=== PATIENT | male | born 1960 | race Caucasian/White ===

== ENCOUNTER → 2016-09-20 | Outpatient (CLI) | payer OTHER ==
[~2016-09-20] VITALS: Ht 198.1 cm; Wt 114.8 kg
[~2016-09-20] MED LIST: AMLO10TA2 PO; GADOBUTROL 7.5 MMOL/7.5 ML VIAL INT ART ONE; IBUP-1060 PO; IOHEXOL 300 MG/ML 50 ML VIAL. IJ ONE; LOSA1TAB17 PO; OXYC-244 PO
[2016-09-20 09:16] VITALS: BP 145/91
--- NOTE | 2016-09-20 11:25 | RAD ---
PROCEDURE MR arthrogram left shoulder with intra-articular contrast. HISTORY Left shoulder pain. Prior rotator cuff repair in June. TECHNIQUE MRI of the left shoulder was performed after the intra-articular administration of gadolinium contrast. Refer to the procedure report for description of that injection. COMPARISON 05/27/2015. FINDINGS The distal clavicle as been partially resected. There are changes of inferior acromioplasty. Contrast reaches the subacromial/subdeltoid bursa consistent with full-thickness rotator cuff tear as follows. Moderate bursitis is suspected. There are 4 suture anchors in the greater tuberosity at the supraspinatus insertion consistent with rotator cuff tear. There is a recurrent tear of the supraspinatus tendon with partial and full thickness components. As demonstrated on the ABER series, there is a full-thickness longitudinal component anteriorly that extends proximal by 3.3 centimeters. There is a partial thickness undersurface retracted tear more posteriorly at the junction with the anterior infraspinatus fibers. The torn undersurface component is retracted by 3.5 centimeters and is less than 50 percent of the tendon substance. At least 50 percent of the tendon substance remains intact to the insertion more anteriorly but is somewhat irregular with at least moderate tendinopathy. A nondisplaced intrasubstance full thickness or near full thickness tear is suspected along the anterior infraspinatus fibers as seen on series 9 image 7. This is 1.5 centimeters proximal to the insertion. The subscapularis tendon is intact. The supraspinatus muscle is mildly atrophic without fatty infiltration. The other muscles are normal in size and signal. The long head biceps tendon is intact and located in the groove. There is a degenerative tear of the superior glenoid labrum versus prior trimming. This extends through the posterior labrum. There is tiny paralabral cyst at the 3 o'clock position measuring 3 millimeters. The glenohumeral articular cartilage demonstrates no focal defects. Alignment is maintained. IMPRESSION - Status post supraspinatus repair. There is a recurrent complex tear. The majority of the tear is partial thickness, but there are full thickness longitudinal components. One undersurface fragment is retracted 3.5 centimeters. Approximately 50 percent of the tendon substance remains intact to the insertion. - Full thickness nondisplaced longitudinal tear of the anterior infraspinatus tendon. - Degenerative superior and posterior labral tear. Tiny posterior perilabral cyst. - Suspect moderate subacromial/subdeltoid bursitis. Electronically signed by: Cole Corado (Sep 20, 2016 11:24:47)
--- NOTE | 2016-09-20 11:29 | RAD ---
Indication: Left shoulder pain. Prior surgery. Procedure: The procedure, its risks and benefits, and potential complications were discussed with the patient. All questions were answered. Written consent to proceed was obtained. Timeout procedure was performed. Patient was prepped and draped in the usual manner. 1% lidocaine was administered locally. 22-gauge spinal needle was positioned into the glenohumeral joint. Positioning was confirmed with 5 mL of Omnipaque 300. Subsequent, approximately 15 mL of a mixture of 0.1 mL of Gadavist and 20 mL of normal saline was injected into the joint, total volume in the joint closer to 20 mm. Needle was withdrawn. Patient tolerated the procedure well. He was transferred to the MRI suite for additional imaging which will be reported separately. 2 images documenting needle and contrast position were stored. Image count is 2. Fluoroscopy time is 0.6 minutes. Impression: Left shoulder arthrogram without complication.
--- NOTE | 2016-09-20 11:38 | RAD ---
PROCEDURE MRI cervical spine without contrast. HISTORY Left shoulder and arm pain TECHNIQUE Multiplanar, multi multi sequential, non contrast MR imaging was performed of the cervical spine. COMPARISON None FINDINGS There is some motion degradation. Cervical cord caliber is within normal limits without significant focal signal abnormality allowing for mild motion artifact. Cervical vertebral body stature and AP alignment are adequate. There is no significant abnormality of the cervical medullary junction. There is moderate degenerative disc disease C6-C7, minimally at C5-C6. C2-3: Spinal canal and the neural foramina are adequate. There is mild to moderate facet degenerative change bilaterally. There is apparently very shallow protrusion in the right lateral recess with associated annular tear. C3-C4: There is moderate facet hypertrophic change. There is mild left uncovertebral degenerative change. Spinal canal and right neural foramen are adequate, moderate to severe narrowing of the left neural foramen. C4-C5: There is moderate facet hypertrophic change. Spinal canal and neural foramina are adequate. C5-C6: There is negligible disc osteophyte complex greater left lateral recess. Spinal canal is adequate. There is moderate facet hypertrophic change. There is very mild left uncovertebral degenerative change. There is at least moderate narrowing of the left neural foramen. Right neural foramen is adequate. C6-C7: There is very minimal posterior disc osteophyte complex. Central canal is minimally narrowed to 9-10 millimeters. There is minimal narrowing of the right neural foramen by uncovertebral degenerative change, left neural foramen adequate. C7-T1: There is negligible posterior central protrusion. Central canal is adequate 11 millimeters. There is likely mild right and at least mild left neural foramina compromise in part by mild uncovertebral degenerative change. IMPRESSION 1. There is no significant cervical spinal stenosis, minimal narrowing at C6-7. 2. There is moderate degenerative disc disease at C6-7 and to lesser degree at C5-C6, mild spondylosis at these levels. 3. There is suspected neural foramina compromise as stated greatest on the left at C5-C6 and C3-C4 and to a lesser degree bilaterally at C7-T1. Facet and uncovertebral degenerative change contributes to neural foramina compromise. Electronically signed by: Bogdan Albarran MD (Sep 20, 2016 11:37:23)
== END | disposition home or self-care (01) ==
LOC: RAD 12:36
PROVIDERS: ATTEND Nurse Practitioner Family
DX: S49.92XA Unspecified injury of left shoulder and upper arm, initial encounter (principal); M50.323 Other cervical disc degeneration at C6-C7 level; M47.892 Other spondylosis, cervical region; S43.402A Unspecified sprain of left shoulder joint, initial encounter; W19.XXXA Unspecified fall, initial encounter; Y93.89 Activity, other specified; Y92.89 Other specified places as the place of occurrence of the external cause; Y99.8 Other external cause status
CPT/HCPCS: 20605; 72141; 73222; 77002; Q9967; A9585

== ENCOUNTER → 2020-01-03 | Outpatient (CLI) | payer BC ==
[2016-09-20 09:16] VITALS: BP 145/91
[~2020-01-03] MED LIST changes: -AMLO10TA2 PO; +AMLO10TA8 PO; -GADOBUTROL 7.5 MMOL/7.5 ML VIAL INT ART ONE; -IOHEXOL 300 MG/ML 50 ML VIAL. IJ ONE; -LOSA1TAB17 PO; +LOSA1TAB22 PO; -OXYC-244 PO; +OXYC1TAB19 PO
--- NOTE | 2020-01-03 12:47 | RAD ---
ABDOMEN LTD History: Abnormal liver function tests, abnormality on outside facility exam in 2015 Comparison: None. Findings: Multiple sonographic images of the abdomen are submitted. Pancreas is not well-visualized due to bowel gas. Gallbladder is present without demonstrable layering sludge, wall thickening, or pericholecystic fluid. There is suggestion of increased echogenicity near the gallbladder neck although otherwise difficult to characterize. Common bile duct is within normal limits about 0.3 cm. There is some coarsening of the hepatic echotexture. Inferior vena cava and abdominal aorta are not well visualized on this exam. Right kidney measured 12.6 x 4.7 x 5.9 cm, no hydronephrosis. Impression: 1. There is some coarsening of the hepatic echotexture, more commonly due to steatosis. 2. Otherwise poorly evaluated on this exam, there is suggestion of some increased echogenicity near the gallbladder neck which could be a gallstone or polyp. Electronically signed by: Paresh Albarran MD (01/03/2020 12:43 PM) [id number]
== END ==
LOC: US 09:08
PROVIDERS: ATTEND Family Medicine
DX: K76.0 Fatty (change of) liver, not elsewhere classified (principal)
CPT/HCPCS: 76705

== ENCOUNTER 2021-11-11 13:21 | Emergency (ER) | payer BC ==
[~2021-11-11] VITALS: Ht 198.1 cm; Wt 123.7 kg
[~2021-11-11 13:21] MED LIST changes: +AMLO-187 PO; -AMLO10TA8 PO
[2021-11-11 13:23] VITALS: BP 158/82
[2021-11-11] MEDS ORDERED: KETOROLAC 60 MG/2 ML VIAL. IM ONE (14:30)
--- NOTE | 2021-11-11 14:55 | PHYS DOC ---
Past Medical History Past Surgical History: Other Additional Past Surgical Histo: rotator cuff General Adult EDM: Chief Complaint: NECK PAIN HPI: HPI: Patient is a 61-year-old male who presents today with right-sided neck pain. Patient states that the pain started yesterday, he said he took some Aleve and slept throughout the night and he said he woke up and his pain was improved and then throughout the day his neck pain has worsened. 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 Patient denies chest pain, shortness of breath, dizziness, fever or chills Review of Systems: Review of Systems: Constitutional: Denies fever or chills. [] Eyes: Denies change in visual acuity. [] HENT: Denies nasal congestion or sore throat. [] Respiratory: Denies cough or shortness of breath. [] Cardiovascular: Denies chest pain or edema. [] GI: Denies abdominal pain, nausea, vomiting, bloody stools or diarrhea. [] : Denies dysuria. [] Musculoskeletal: Neck pain Integument: Denies rash. [] Neurologic: Denies headache, focal weakness or sensory changes. [] Endocrine: Denies polyuria or polydipsia. [] Lymphatic: Denies swollen glands. [] Psychiatric: Denies depression or anxiety. [] Heart Score: C/O Chest Pain: No Risk Factors: Risk Factors: DM, Current or recent (<one month) smoker, HTN, HLP, family history of CAD, obesity. Risk Scores: Score 0 - 3: 2.5% MACE over next 6 weeks - Discharge Home Score 4 - 6: 20.3% MACE over next 6 weeks - Admit for Clinical Observation Score 7 - 10: 72.7% MACE over next 6 weeks - Early Invasive Strategies Current Medications: Current Medications Medications (Trade) Dose Ordered Sig/Meron Start Time Stop Time Status Last Admin Dose Admin Ketorolac Tromethamine (Toradol Im) 60 mg 1X ONCE 11/11/21 14:30 11/11/21 14:31 DC 11/11/21 14:34 60 MG Allergies: Allergies: Allergies Coded Allergies Type Severity Reaction Last Updated Verified No Known Drug Allergies 06/22/15 No Physical Exam: PE: Constitutional: Well developed, well nourished, no acute distress, non-toxic appearance. [] HENT: Normocephalic, atraumatic, bilateral external ears normal, oropharynx moist, no oral exudates, nose normal. [] Eyes: PERRLA, EOMI, conjunctiva normal, no discharge. [] Neck: Patient is unable to turn his head to the right, he is able to make full range of motion to the left, patient has increased pain with palpation along the right trapezius muscle no midline tenderness, no numbness tingling and strength issues in bilateral arms Cardiovascular:Heart rate regular rhythm, no murmur [] Lungs & Thorax: Bilateral breath sounds clear to auscultation [] Abdomen: Bowel sounds normal, soft, no tenderness, no masses, no pulsatile masses. [] Skin: Warm, dry, no erythema, no rash. [] Back: No tenderness, no CVA tenderness. [] Extremities: No tenderness, no cyanosis, no clubbing, ROM intact, no edema. [] Neurologic: Alert and oriented X 3, normal motor function, normal sensory function, no focal deficits noted. [] Psychologic: Affect normal, judgement normal, mood normal. [] Current Patient Data: Vital Signs: Vital Signs Date Time Temp Pulse Resp B/P (MAP) Pulse Ox O2 Delivery O2 Flow Rate FiO2 11/11/21 13:23 98.3 87 16 158/82 (107) 98 Room Air 98.3 EKG: EKG: [] Radiology/Procedures: Radiology/Procedures: REASON: right neck pain PROCEDURE: CT CERVICAL SPINE WO CONTRAST Exam: CT cervical spine without contrast INDICATION: Right, neck pain TECHNIQUE: Sequential axial images through the cervical spine obtained without IV contrast. Sagittal and coronal reformatted images were reconstructed from the axial data and reviewed. Exposure: One or more of the following in the visualized dose reduction techniques were utilized for this examination: 1. Automated exposure control 2. Adjustment of the MA and/or KV according to patient size 3. Use of iterative of reconstructive technique Comparisons: None FINDINGS: Visualized intracranial structures. Vertebral body heights and alignment are normal. Fracture to the cervical spine is not identified. Multilevel spondylotic change in cervical spine with degenerative disc disease greatest at C5-C6 and C6-C7. Mild bilateral facet arthropathy is also noted in cervical spine. Visualized paraspinal soft tissues are unremarkable. IMPRESSION: Negative CT C-spine for acute traumatic injury. Electronically signed by: Mercedez Fitzgerald MD (11/11/2021 3:07 PM) [facility] [] Course & Med Decision Making: Course & Med Decision Making Pertinent Labs and Imaging studies reviewed. (See chart for details) 1530 I did review radiological results with patient and after reviewing them I feel that this patient has musculoskeletal pain in his neck, he said that after the Toradol his neck does feel better, we talked about his treatment plan he is agreeable to taking Flexeril and Motrin for his pain, he did not want any hydrocodone at this time, he states he will follow-up with his primary care physician Dr. Leyva for further evaluation and management should this neck pain continue. Dragon Disclaimer: Dragon Disclaimer: This electronic medical record was generated, in whole or in part, using a voice recognition dictation system. Departure Departure Impression: Primary Impression: Torticollis, acute Disposition: HOME / SELF CARE / HOMELESS Condition: STABLE Referrals: ENOCH LEYVA MD (PCP) Patient Instructions: Torticollis, Acute Additional Instructions: [id number] Motrin as labeled directed for pain Flexeril take 0.5-1 tablet every 8 hours as needed for muscle spasms, use with caution may cause drowsiness Follow-up with your primary care physician Dr. Leyva in the next couple of days for your pain continue Return to the emergency department should you have increased neck pain, any left arm numbness or tingling or inability to use your left arm. Scripts Cyclobenzaprine Hcl (CYCLOBENZAPRINE HCL) 10 Mg Tablet 10 MG PO TID PRN PRN for MUSCLE SPASMS, #14 TAB Prov: JAMILA BAIG APRN 11/11/21 JAMILA BAIG TRAY DRIER November 11, 2021 14:55
--- NOTE | 2021-11-11 15:10 | RAD ---
Exam: CT cervical spine without contrast INDICATION: Right, neck pain TECHNIQUE: Sequential axial images through the cervical spine obtained without IV contrast. Sagittal and coronal reformatted images were reconstructed from the axial data and reviewed. Exposure: One or more of the following in the visualized dose reduction techniques were utilized for this examination: 1. Automated exposure control 2. Adjustment of the MA and/or KV according to patient size 3. Use of iterative of reconstructive technique Comparisons: None FINDINGS: Visualized intracranial structures. Vertebral body heights and alignment are normal. Fracture to the cervical spine is not identified. Multilevel spondylotic change in cervical spine with degenerative disc disease greatest at C5-C6 and C6-C7. Mild bilateral facet arthropathy is also noted in cervical spine. Visualized paraspinal soft tissues are unremarkable. IMPRESSION: Negative CT C-spine for acute traumatic injury. Electronically signed by: Mercedez Fitzgerald MD (11/11/2021 3:07 PM) [facility]
[2021-11-11] MEDS ORDERED: CYCL10TA19 PO (15:43)
== END 2021-11-11 15:55 | disposition home or self-care (01) ==
LOC: ER 13:21
DX: M43.6 Torticollis (principal)
CPT/HCPCS: 72125; 96372; 99284; J1885